=== PATIENT | male | born 1945 | race Caucasian/White ===

== ENCOUNTER 2021-09-13 09:40 | Day surgery (SDC) | payer MEDICARE, OTHER ==
[2021-09-13] MEDS ORDERED: Sodium Chloride 0.9% 10 ML Syringe IV ONE (09:41)
[2021-09-13] MEDS ORDERED: Midazolam 1 MG/ML 2 ML SDV IV ONE (09:41)
[2021-09-13] MEDS ORDERED: Dexamethasone 4 MG/ML SDV IV ONE (09:41)
[2021-09-13] MEDS ORDERED: Phenylephrine 10% Ophth Soln 5 ML Bot EYELF ONE (10:00)
[2021-09-13] MEDS ORDERED: Povidone-Iodine 5% Sterile Ophth Soln 30 ML Bottle EYELF ONE ×2 (10:00→10:44)
[2021-09-13] MEDS ORDERED: Proparacaine 0.5% Ophth Soln 15 ML Bottle EYELF ONE (10:00)
[2021-09-13] MEDS ORDERED: Acetaminophen/Codeine 300-30 MG Tab PO PRN (10:00)
[2021-09-13] MEDS ORDERED: Cataract Ophth Solution EYELF ONE (10:00)
[2021-09-13] MEDS ORDERED: Ondansetron 4 MG/2 ML SDV IVPUSH PRN (10:00)
[2021-09-13] MEDS ORDERED: Moxifloxacin 0.5% Ophth Soln 3 ML Bottle EYELF ONE (10:00)
[2021-09-13] MEDS ORDERED: Tropicamide 1% Ophth Soln 15 ML Bottle EYELF ONE (10:00)
[2021-09-13] MEDS ORDERED: Acetaminophen 325 MG Tab PO PRN (10:00)
[2021-09-13] MEDS ORDERED: Timolol Maleate 0.5% Ophth Soln 5 ML Bottle EYELF ONE (10:00)
[2021-09-13] MEDS ORDERED: Sodium Chloride 0.9% 10 ML Syringe FLUSH PRN (10:00)
[2021-09-13] MEDS ORDERED: Tetracaine HCl/PF 0.5% 4 ML Bottle EYELF ONE (10:43)
[2021-09-13] MEDS ORDERED: Diclofenac Sodium 0.1% Ophth Soln 5 ML Bottle EYELF ONE (10:44)
[2021-09-13] MEDS ORDERED: Dexamethasone/Neomycin/Polymyxin B Ophth Oint 3.5 GM Tube EYELF ONE (10:44)
[2021-09-13] MEDS ORDERED: Apraclonidine 0.5% Ophth Soln 5 ML Bot EYELF ONE (10:44)
[2021-09-13] MEDS ORDERED: Lidocaine 1% 30 ML SDV ONE (10:44)
[2021-09-13] MEDS ORDERED: Vancomycin 500 MG SDV EYELF ONE (10:45)
[2021-09-13] MEDS ORDERED: Chondroitin Sulfate/Hyaluronate Sodium Ophth Inj 0.5 ML Syringe IOCULAR ONE (10:45)
[2021-09-13] MEDS ORDERED: Balanced Salt Solution Ophth Irrig 500 ML Bottle IOCULAR ONE (10:45)
[2021-09-13 12:01] VITALS: BP 179/80; PULSE 58
== END 2021-09-13 11:55 | disposition home or self-care (01) ==
LOC: DL.SDS 09:40
PROVIDERS: ATTEND Ophthalmology
DX: H25.812 Combined forms of age-related cataract, left eye (principal); E78.5 Hyperlipidemia, unspecified; I10 Essential (primary) hypertension; N40.0 Benign prostatic hyperplasia without lower urinary tract symptoms; Z79.82 Long term (current) use of aspirin; Z79.02 Long term (current) use of antithrombotics/antiplatelets; Z79.899 Other long term (current) drug therapy; Z87.891 Personal history of nicotine dependence
CPT/HCPCS: 00142; A9270-GY; J1100; J2250; J3370; J3490; V2632

== ENCOUNTER 2024-02-09 10:06 | Emergency (ER) | payer MEDICARE, OTHER ==
[2024-02-09 10:37] VITALS: BP 172/77; PULSE 65
[2024-02-09 10:45] LABS: BASOPHILS PERCENT AUTO 0.2 % (0.0-1.0); EOSINOPHILS PERCENT AUTO 1.7 % (1.0-3.0); HEMATOCRIT 44.2 % (40.0-54.0); HEMOGLOBIN 15.2 g/dL (14.0-18.0); LYMPHOCYTES PERCENT AUTO 16.6 % (20.5-50.1); MEAN CORPUSCULAR HEMOGLOBIN 30.6 pg (27.0-34.0); MEAN CORPUSCULAR HGB CONC 34.4 g/dL (33.0-35.0); MEAN CORPUSCULAR VOLUME 89.1 fL (80-100); MONOCYTES PERCENT AUTO 7.8 % (2-8); NEUTROPHILS PERCENT AUTO 73.7 % (42.2-75.2); PLATELET COUNT,PLT 231 10^3/uL (150-450); RED BLOOD CELL COUNT 4.96 10^6/uL (4.6-6.2); WHITE BLOOD CELL COUNT,WBC 8.8 10^3/uL (5.0-10.0)
[2024-02-09 11:10] LABS: A/G RATIO 0.9; ALBUMIN 3.5 g/dL (3.4-5.0); ANION GAP 12.2 mEq/L (7-13); BILIRUBIN TOTAL 0.4 mg/dL (0.2-1.0); BUN/CREATININE RATIO 14.3 (No establ ref range); CALCIUM 9.7 mg/dL (8.5-10.1); CREATININE 0.98 mg/dL (0.70-1.30); EST CRCL DRUG DOSING (CG) 66.16 mL/min; POTASSIUM,K 4.2 mmol/L (3.5-5.1); PROTEIN TOTAL,TP 7.5 g/dL (6.4-8.2)
[2024-02-09 11:13] LABS: APPEARANCE,URINE CLEAR (CLEAR); BILIRUBIN,URINE NEGATIVE (NEGATIVE); GLUCOSE,URINE NEGATIVE (NEGATIVE); KETONES,URINE NEGATIVE (NEGATIVE); LEUKOCYTE ESTERASE,URINE NEGATIVE (NEGATIVE); NITRITE,URINE NEGATIVE (NEGATIVE); OCCULT BLOOD,URINE SMALL (NEGATIVE); PROTEIN,URINE NEGATIVE (NEGATIVE); UROBILINOGEN,URINE 0.2 mg/dL (0.2-1.0)
[2024-02-09 11:16] LABS: COLOR,URINE LIGHT YELLOW (YELLOW)
[2024-02-09 11:22] LABS: BACTERIA,URINE FEW /HPF (0-FEW/HPF); EPITHELIAL CELLS,URINE RARE /HPF (NOT SEEN); WBC,URINE 0-5 /HPF (0-5/HPF)
== END 2024-02-09 11:52 ==
LOC: DL.ED 10:06
DX: N48.1 Balanitis (principal); N47.2 Paraphimosis; I10 Essential (primary) hypertension; E78.00 Pure hypercholesterolemia, unspecified; Z79.899 Other long term (current) drug therapy; Z79.02 Long term (current) use of antithrombotics/antiplatelets; Z79.82 Long term (current) use of aspirin
CPT/HCPCS: 36415; 80053; 81001; 85025; 99284

== ENCOUNTER 2024-11-08 14:49 | Inpatient (IN) | payer MEDICARE, OTHER ==
[2024-11-08 15:08] LABS: BASOPHILS PERCENT AUTO 0.2 % (0.0-1.0); EOSINOPHILS PERCENT AUTO 0.2 % (1.0-3.0); HEMATOCRIT 41.9 % (40.0-54.0); HEMOGLOBIN 14.4 g/dL (14.0-18.0); MEAN CORPUSCULAR HEMOGLOBIN 30.5 pg (27.0-34.0); MEAN CORPUSCULAR HGB CONC 34.4 g/dL (33.0-35.0); MEAN CORPUSCULAR VOLUME 88.8 fL (80-100); MONOCYTES PERCENT AUTO 4.1 % (2-8); NEUTROPHILS PERCENT AUTO 90.5 % (42.2-75.2); PLATELET COUNT,PLT 176 10^3/uL (150-450); RED BLOOD CELL COUNT 4.72 10^6/uL (4.6-6.2); WHITE BLOOD CELL COUNT,WBC 16.5 10^3/uL (5.0-10.0)
[2024-11-08] MEDS: Ketorolac 30 MG/ML SDV IVPUSH ONE (15:11)
[2024-11-08] MEDS: Sodium Chloride 0.9% 1,000 ML IV ONE ×2 (15:11→15:49)
[2024-11-08] MEDS: Ondansetron 4 MG/2 ML SDV IVPUSH ONE (15:12)
[2024-11-08] MEDS: Acetaminophen 500 MG Tab PO ONE (15:12)
[2024-11-08] MEDS: fentaNYL 100 MCG/2 ML SDV IVPUSH ONE (15:12)
[2024-11-08 15:28] LABS: A/G RATIO 0.9; ALANINE AMINOTRANSFERASE,ALT 13 U/L (16-63); ALBUMIN 3.4 g/dL (3.4-5.0); ALKALINE PHOSPHATASE 144 U/L (46-116); ANION GAP 13.9 mEq/L (7-13); ASPARTATE AMNIOTRANSFERASE,AST 14 U/L (15-37); BILIRUBIN TOTAL 0.5 mg/dL (0.2-1.0); BLOOD UREA NITROGEN,BUN 15 mg/dL (7-18); BUN/CREATININE RATIO 14.9 (No establ ref range); C-REACTIVE PROTEIN 6.76 ng/dL (<=0.50); CALCIUM 9.5 mg/dL (8.5-10.1); CARBON DIOXIDE,CO2 27 mmol/L (21-32); CHLORIDE,CL 101 mmol/L (98-107); CREATININE 1.01 mg/dL (0.70-1.30); GLUCOSE RANDOM 103 mg/dL (70-99); MAGNESIUM 1.5 mg/dL (1.8-2.4); POTASSIUM,K 3.9 mmol/L (3.5-5.1); PROTEIN TOTAL,TP 7.3 g/dL (6.4-8.2); SODIUM,NA 138 mmol/L (136-145)
[2024-11-08 15:29] LABS: ESTIMATED GFR 76 mL/min (>=60)
[2024-11-08 15:31] LABS: LACTIC ACID 1.1 mmol/L (0.4-2.0)
[2024-11-08] MEDS: Magnesium Sulfate 2 GM/50 mL 2 GM in Premix Bag 1 BAG IV ONE (15:49)
[2024-11-08 16:15] LABS: APPEARANCE,URINE SLIGHTLY CLOUDY (CLEAR); BILIRUBIN,URINE NEGATIVE (NEGATIVE); COLOR,URINE YELLOW (YELLOW); GLUCOSE,URINE NEGATIVE (NEGATIVE); KETONES,URINE NEGATIVE (NEGATIVE); LEUKOCYTE ESTERASE,URINE SMALL (NEGATIVE); NITRITE,URINE POSITIVE (NEGATIVE); OCCULT BLOOD,URINE MODERATE (NEGATIVE); PH,URINE 5.5 (5.0-9.0); PROTEIN,URINE >=300 (NEGATIVE); UROBILINOGEN,URINE 0.2 mg/dL (0.2-1.0)
[2024-11-08] MEDS: VANCOmycin 1.75 GM in Sodium Chloride 0.9% 500 ML IV ONE (16:25)
[2024-11-08] MEDS: Piperacillin/Tazobactam 4.5 GM in Sodium Chloride 0.9% 100 ML IV ONE (16:25)
[2024-11-08 16:26] LABS: BACTERIA,URINE MANY /HPF (0-FEW/HPF); EPITHELIAL CELLS,URINE FEW /HPF (NOT SEEN); WBC,URINE 30-40 /HPF (0-5/HPF)
[2024-11-08 16:27] LABS: MUCUS,URINE RARE /LPF (NOT SEEN)
[2024-11-08] MEDS ORDERED: Nitroglycerin/D5W 25 MG/250 ML BOTTLE IV SCH (17:30)
[2024-11-08] MEDS: Iopamidol 612 MG/ML 100 ML Bottle IVPUSH ONE (17:35)
[2024-11-08 17:53] LABS: B-TYPE NATRIURETIC PEPTIDE,BNP 209 pg/ml (0-100)
[2024-11-08] MEDS ORDERED: Docusate Sodium 100 MG Cap PO PRN (18:13)
[2024-11-08] MEDS ORDERED: Polyethylene Glycol 3350 Powder 17 GM Packet PO PRN (18:13)
[2024-11-08] MEDS ORDERED: Ondansetron 4 MG/2 ML SDV IVPUSH PRN (18:18)
[2024-11-08] MEDS: Piperacillin/Tazobactam 4.5 GM in Sodium Chloride 0.9% 100 ML IV SCH (19:53)
[2024-11-08] MEDS: Furosemide 40 MG/4 ML VIAL IVPUSH ONE (19:54)
[2024-11-08] MEDS: Clopidogrel 75 MG Tab PO SCH (19:56)
[2024-11-08] MEDS: Doxycycline Monohydrate 100 MG Cap PO SCH (19:56)
[2024-11-08] MEDS: Tamsulosin 0.4 MG Cap.ER PO SCH (19:56)
[2024-11-08] MEDS: Labetalol 20 MG/4 ML Syringe IVPUSH ONE (20:09)
[2024-11-08] MEDS: oxyCODONE 5 MG Tab PO PRN (21:43)
[2024-11-09] MEDS ORDERED: Piperacillin/Tazobactam 3.375 GM in Sodium Chloride 0.9% 100 ML IV SCH
[2024-11-09] MEDS: Acetaminophen 325 MG Tab PO PRN (00:36)
[2024-11-09] MEDS: Heparin Sodium 5,000 Units/ML Vial SUBCUT SCH (01:44)
[2024-11-09] MEDS: Morphine 2 MG/ML SYRINGE IVPUSH PRN (01:55)
[2024-11-09 06:30] LABS: HEMATOCRIT 36.9 % (40.0-54.0); HEMOGLOBIN 12.4 g/dL (14.0-18.0); MEAN CORPUSCULAR HEMOGLOBIN 30.7 pg (27.0-34.0); MEAN CORPUSCULAR HGB CONC 33.6 g/dL (33.0-35.0); MEAN CORPUSCULAR VOLUME 91.3 fL (80-100); PLATELET COUNT,PLT 163 10^3/uL (150-450); RED BLOOD CELL COUNT 4.04 10^6/uL (4.6-6.2); WHITE BLOOD CELL COUNT,WBC 29.5 10^3/uL (5.0-10.0)
[2024-11-09 06:44] LABS: BASOPHILS PERCENT AUTO 0.1 % (0.0-1.0); LYMPHOCYTES PERCENT AUTO 5.4 % (20.5-50.1); MONOCYTES PERCENT AUTO 8.5 % (2-8)
[2024-11-09 06:55] LABS: ANION GAP 15.2 mEq/L (7-13); CALCIUM 8.5 mg/dL (8.5-10.1); CREATININE 1.27 mg/dL (0.70-1.30); EST CRCL DRUG DOSING (CG) 52.62 mL/min; MAGNESIUM 1.7 mg/dL (1.8-2.4); POTASSIUM,K 3.2 mmol/L (3.5-5.1)
[2024-11-09 07:25] LABS: LYMPHOCYTES PERCENT MAN 6 % (20-50); MONOCYTES PERCENT MAN 4 % (2-8); SEG NEUTROPHILS PERCENT MAN 90 % (42-75)
[2024-11-09] MEDS: Aspirin 81 MG Tab.EC PO SCH (08:16)
[2024-11-09] MEDS: Magnesium Oxide 400 MG Tab PO SCH (08:17)
[2024-11-09] MEDS: Potassium Chloride 10 MEQ Tab.ER PO SCH (08:18)
[2024-11-09] MEDS: VANCOmycin 1.5 GM/300 ML 1.5 GM in Premix Bag 1 BAG IV SCH (16:09)
[2024-11-10] MEDS: Sodium Chloride 0.9% 10 ML Syringe FLUSH PRN (03:46)
[2024-11-10 06:48] LABS: BASOPHILS PERCENT AUTO 0.1 % (0.0-1.0); EOSINOPHILS PERCENT AUTO 0.7 % (1.0-3.0); HEMATOCRIT 36.1 % (40.0-54.0); HEMOGLOBIN 12.2 g/dL (14.0-18.0); LYMPHOCYTES PERCENT AUTO 6.7 % (20.5-50.1); MEAN CORPUSCULAR HEMOGLOBIN 30.9 pg (27.0-34.0); MEAN CORPUSCULAR HGB CONC 33.8 g/dL (33.0-35.0); MEAN CORPUSCULAR VOLUME 91.4 fL (80-100); MONOCYTES PERCENT AUTO 5.3 % (2-8); NEUTROPHILS PERCENT AUTO 87.2 % (42.2-75.2); PLATELET COUNT,PLT 152 10^3/uL (150-450); RED BLOOD CELL COUNT 3.95 10^6/uL (4.6-6.2); WHITE BLOOD CELL COUNT,WBC 21.6 10^3/uL (5.0-10.0)
[2024-11-10 07:09] LABS: ALANINE AMINOTRANSFERASE,ALT 23 U/L (16-63); ALBUMIN 2.5 g/dL (3.4-5.0); ALKALINE PHOSPHATASE 142 U/L (46-116); ANION GAP 13.7 mEq/L (7-13); ASPARTATE AMNIOTRANSFERASE,AST 30 U/L (15-37); BILIRUBIN TOTAL 0.6 mg/dL (0.2-1.0); BLOOD UREA NITROGEN,BUN 24 mg/dL (7-18); BUN/CREATININE RATIO 22.9 (No establ ref range); CALCIUM 9.1 mg/dL (8.5-10.1); CARBON DIOXIDE,CO2 25 mmol/L (21-32); CHLORIDE,CL 103 mmol/L (98-107); CREATININE 1.05 mg/dL (0.70-1.30); EST CRCL DRUG DOSING (CG) 63.64 mL/min; GLUCOSE RANDOM 102 mg/dL (70-99); POTASSIUM,K 3.7 mmol/L (3.5-5.1); PROTEIN TOTAL,TP 6.4 g/dL (6.4-8.2); SODIUM,NA 138 mmol/L (136-145)
[2024-11-10 07:19] LABS: A/G RATIO 0.64; C-REACTIVE PROTEIN > 25.00 ng/dL (<=0.50); ESTIMATED GFR 73 mL/min (>=60)
[2024-11-10] MEDS: Levofloxacin/Dextrose 5%-Water 750 MG in Premix Bag 1 BAG IV SCH (10:11)
[2024-11-10] MEDS: Metoprolol Succinate 25 MG Tab.ER PO SCH (10:34)
[2024-11-10 11:13] LABS: TSH ULTRASENSITIVE 6.81 uIU/mL (0.36-3.74)
[2024-11-10] MEDS: Nystatin Topical Powder 60 GM Bottle TOP SCH (15:21)
[2024-11-10] MEDS ORDERED: VANCOmycin 1 GM in Sodium Chloride 0.9% 250 ML IV SCH (16:00)
[2024-11-10] MEDS: Nicotine 14 MG/24 Hr Patch TRDERM SCH (16:34)
[2024-11-10] MEDS: Rosuvastatin 10 MG Tab PO SCH (20:38)
[2024-11-10] MEDS: Check NICOTINE Patch TRDERM SCH (20:39)
[2024-11-10] MEDS ORDERED: Melatonin 3 MG Tab PO PRN (20:52)
[2024-11-10] MEDS: Losartan 50 MG Tab PO SCH (21:47)
[2024-11-10] MEDS: Chlorthalidone 25 MG Tab PO SCH (21:47)
[2024-11-10] MEDS: Melatonin 3 MG Tab PO SCH (21:47)
[2024-11-11 05:35] VITALS: PULSE 63
[2024-11-11] MEDS: amLODIPine 5 MG Tab PO SCH ×2 (06:12→08:15)
[2024-11-11] MEDS: Losartan 50 MG Tab PO SCH ×2 (06:12→08:18)
[2024-11-11 06:41] LABS: BASOPHILS PERCENT AUTO 0.2 % (0.0-1.0); HEMATOCRIT 39.5 % (40.0-54.0); HEMOGLOBIN 13.3 g/dL (14.0-18.0); MEAN CORPUSCULAR HEMOGLOBIN 30.3 pg (27.0-34.0); MEAN CORPUSCULAR HGB CONC 33.7 g/dL (33.0-35.0); MONOCYTES PERCENT AUTO 4.6 % (2-8); NEUTROPHILS PERCENT AUTO 84.2 % (42.2-75.2); PLATELET COUNT,PLT 200 10^3/uL (150-450); RED BLOOD CELL COUNT 4.39 10^6/uL (4.6-6.2); WHITE BLOOD CELL COUNT,WBC 16.8 10^3/uL (5.0-10.0)
[2024-11-11 07:09] LABS: ALBUMIN 2.9 g/dL (3.4-5.0); ANION GAP 13.3 mEq/L (7-13); BILIRUBIN TOTAL 0.5 mg/dL (0.2-1.0); BUN/CREATININE RATIO 20.2 (No establ ref range); C-REACTIVE PROTEIN 16.09 ng/dL (<=0.50); CALCIUM 9.5 mg/dL (8.5-10.1); CREATININE 0.94 mg/dL (0.70-1.30); EST CRCL DRUG DOSING (CG) 71.09 mL/min; MAGNESIUM 1.9 mg/dL (1.8-2.4); POTASSIUM,K 4.3 mmol/L (3.5-5.1)
[2024-11-11 07:10] LABS: A/G RATIO 0.71
[2024-11-11 07:30] LABS: PERCENT FE SATURATION 13.6 % (20.0-50.0)
[2024-11-11] MEDS: Furosemide 40 MG/4 ML VIAL IVPUSH ONE (08:19)
[2024-11-11 11:23] VITALS: BP 157/69
== END 2024-11-11 12:15 | disposition home or self-care (01) | DRG 871 ==
LOC: DL.ED 14:49 → DL.MS 16:30
PROVIDERS: ADMIT Internal Medicine; ATTEND Student in an Organized Health Care Education/Training Program
DX: A41.9 Sepsis, unspecified organism (principal); A41.81 Sepsis due to Enterococcus; J96.01 Acute respiratory failure with hypoxia; I47.29 Other ventricular tachycardia; B37.89 Other sites of candidiasis; N39.0 Urinary tract infection, site not specified; A41.52 Sepsis due to Pseudomonas; Z68.27 Body mass index [BMI] 27.0-27.9, adult; I10 Essential (primary) hypertension; I25.10 Atherosclerotic heart disease of native coronary artery without angina pectoris; N43.3 Hydrocele, unspecified; R21 Rash and other nonspecific skin eruption; I71.40 Abdominal aortic aneurysm, without rupture, unspecified; I16.0 Hypertensive urgency; H54.7 Unspecified visual loss; E78.00 Pure hypercholesterolemia, unspecified; N40.0 Benign prostatic hyperplasia without lower urinary tract symptoms; N20.0 Calculus of kidney; N50.3 Cyst of epididymis; E87.70 Fluid overload, unspecified; E66.9 Obesity, unspecified; E83.42 Hypomagnesemia; E03.8 Other specified hypothyroidism; D64.9 Anemia, unspecified; E87.6 Hypokalemia; Z79.82 Long term (current) use of aspirin; Z68.28 Body mass index [BMI] 28.0-28.9, adult; Z79.899 Other long term (current) drug therapy; Z98.890 Other specified postprocedural states; Z98.49 Cataract extraction status, unspecified eye; Z87.891 Personal history of nicotine dependence; Z79.01 Long term (current) use of anticoagulants; Z90.89 Acquired absence of other organs
CPT/HCPCS: 36415; 71045; 76870; 80053; 81001; 82550; 82977; 83605; 83735; 83880; 84145; 84484; 85025; 86140; 87040 ×2; 87086; 87088 ×2; 87186 ×2; 96365; 96375; 99285; A9270; G0103; J1885; J2405; J2543; J3010; J3371; J3475; J7030 ×2; J7040; 74178; 80048; 80202; 82728; 83540; 83550; 84100; 84439; 84443; 86618; 93005; 93306; 99223; 99232; 99233; 99238; J1644; J1938; J1956; J2270; J3372; J3490; Q9967